=== PATIENT | male | born 1965 | race Caucasian/White ===

== ENCOUNTER 2021-08-15 21:23 | Emergency (ER) | payer OTHER ==
[2021-08-15] MEDS ORDERED: Sodium Chloride 0.9% 10 ML Syringe FLUSH PRN (21:45)
[2021-08-15] MEDS ORDERED: Ondansetron 4 MG/2 ML SDV IVPUSH ONE (21:59)
[2021-08-15] MEDS ORDERED: Sodium Chloride 0.9% 1,000 ML IV SCH (22:00)
[2021-08-15 22:27] LABS: CORONAVIRUS COVID-19 NAA POSITIVE (NEGATIVE)
[2021-08-15] MEDS ORDERED: Dexamethasone 4 MG Tab PO ONE (22:28)
[2021-08-15] MEDS ORDERED: REMDESIVIR 200 MG in Sodium Chloride 0.9% 250 ML IV ONE (22:29)
[2021-08-15] MEDS ORDERED: Dexamethasone 4 MG/ML 5 ML MDV IV ONE (23:16)
== END 2021-08-16 00:30 ==
LOC: JD.ED 21:23
DX: U07.1 COVID-19 (principal); J12.82 Pneumonia due to coronavirus disease 2019; I63.9 Cerebral infarction, unspecified; R09.02 Hypoxemia
CPT/HCPCS: 0240U; 36415; 36600; 70450; 71045; 71275; 80053; 82803; 82947; 85025; 85379; 86140; 93005; 94762; 96365; 96375; 99285; J0248; J1100; J2405; J7030; J7050; 93010